=== PATIENT | male | born 1990 | race Caucasian/White ===

== ENCOUNTER 2018-05-21 09:16 | Outpatient (CLI) | payer OTHER ==
--- NOTE | 2018-05-21 11:19 | ULT ---
COMPLETE ABDOMINAL ULTRASOUND: HISTORY: Epigastric pain for three months. COMPARISON: None. TECHNIQUE: Multiplanar zaragoza-scale and color Doppler images were obtained in a complete abdominal ultrasound. FINDINGS: The liver is normal in echogenicity without focal lesions or intrahepatic ductal dilatation. The gal lbladder is normal without stones, sludge, gallbladder wall thickening, or pericholecystic fluid. Th e common bile duct is normal, measuring 3 mm. The aorta and inferior vena cava are normal in caliber. The visualized portions of the pancreas are unremarkable. The spleen is normal in echogenicity without focal lesions and measures 10.4 cm in danelle gth. Both kidneys are normal in echogenicity without hydronephrosis or calculi and measure 11.2 and 10.8 c m in length, on the right and left, respectively. IMPRESSION: Unremarkable examination. POS: [facility]
== END 2018-05-21 09:17 | disposition home or self-care (01) ==
LOC: SCSULT 09:16
PROVIDERS: ATTEND Internal Medicine Gastroenterology
DX: R10.13 Epigastric pain (principal)
CPT/HCPCS: 76700